=== PATIENT | male | born 1990 | race Caucasian/White ===

== ENCOUNTER 2022-03-24 19:01 | Emergency (ER) | payer SELFPAY ==
[~2022-03-24] VITALS: Ht 193 cm; Wt 109.0 kg
[2022-03-24 19:07] VITALS: BP 112/79
== END 2022-03-24 21:09 | disposition left against medical advice (07) ==
LOC: ER 19:15
DX: R21 Rash and other nonspecific skin eruption (principal); R45.1 Restlessness and agitation
CPT/HCPCS: 99283; Z7610